=== PATIENT | male | born 1950 | race Hispanic/Latino ===

== ENCOUNTER 2016-12-15 14:49 | Inpatient (IN) | payer MEDICARE ==
[2016-12-15 14:49] VITALS: BMI 25.0
[2016-12-15 16:57] LABS: BASO # 0.1 K/uL (0.0-0.2); BASO % 1.4 % (0.0-2.0); EOS # 0.1 K/uL (0.0-0.7); EOS % 1.8 % (0.0-4.0); HEMOGLOBIN 14.9 g/dL (12.0-18.0); LYMPH # 2.3 K/uL (1.0-4.3); LYMPH % 36.7 % (20.0-40.0); MEAN CELL VOLUME 94.3 fL (80.0-94.0); MEAN CORPUSCULAR HEMOGLOBIN 31.5 pg (27.0-31.0); MEAN CORPUSCULAR HGB CONC 33.4 g/dL (33.0-37.0); MEAN PLATELET VOLUME 7.7 fL (7.2-11.7); MONO # 0.3 K/uL (0.0-0.8); MONO % 5.4 % (0.0-10.0); NEUT # 3.5 K/uL (1.8-7.0); NEUT % 54.7 % (50.0-75.0); NRBC % 0.1 % (0.0-2.0); RBC 4.72 Mil/uL (4.40-5.90); RED CELL DISTRIBUTION WIDTH 15.6 % (11.5-14.5); URINE BILIRUBIN NEGATIVE (NEGATIVE); URINE BLOOD NEGATIVE (NEGATIVE); URINE CLARITY Clear (Clear); URINE COLOR Yellow (YELLOW); URINE GLUCOSE (UA) NORMAL (Normal); URINE LEUKOCYTE ESTERASE NEG Leu/uL (Negative); URINE NITRATE NEGATIVE (NEGATIVE); URINE PROTEIN NEGATIVE (NEGATIVE); WHITE BLOOD COUNT 6.4 K/uL (4.8-10.8)
[2016-12-15 17:02] LABS: ALBUMIN 4.1 g/dL (3.5-5.0)
[2016-12-15 17:05] LABS: ALB/GLOB RATIO 1.4 (1.0-2.1); ALT/SGPT 34 U/L (21-72); AST/SGOT 34 U/L (17-59); BARBITURATES, UR NEGATIVE (NEGATIVE); BLOOD UREA NITROGEN 7 mg/dL (9-20); GFR AFRICAN-AMERICAN > 60; GFR NON-AFRICAN AMERICAN > 60
[2016-12-15 17:06] LABS: BENZODIAZEPINES, UR NEGATIVE (NEGATIVE); CALCIUM 9.1 mg/dl (8.6-10.4)
[2016-12-15 17:11] LABS: OPIATES, UR NEGATIVE (NEGATIVE)
[2016-12-15 17:55] LABS: PHENCYCLIDINE, UR NEGATIVE (NEGATIVE)
--- NOTE | 2016-12-15 19:36 | C.PDOC ---
History Of Present Illness 66 y/o male presents to the ED for evaluation of depression- requesting psychiatric eval/admission. Patient also admits to daily alcohol intake for the last 3 weeks. He denies specific suicidal ideation/plan at this time. Time Seen by Provider: 12/15/16 16:16 Chief Complaint (Nursing): Psychiatric Evaluation History Per: Patient History/Exam Limitations: no limitations Onset/Duration Of Symptoms: Other (approx 3 weeks ) Current Symptoms Are (Timing): Still Present Suicide/Self Injury Attempted (Context): None Modifying Factor(s): Alcohol Associated Symptoms: Depression. denies: Suicidal Thoughts, Suicidal Plan Additional History Per: Patient Past Medical History Reviewed: Historical Data, Nursing Documentation, Vital Signs Vital Signs: Last Vital Signs Temp 97.8 F 12/19/16 09:50 Pulse 100 H 12/19/16 09:50 Resp 18 12/19/16 09:50 BP 105/77 12/19/16 09:50 Pulse Ox 97 12/19/16 09:50 - Medical History PMH: Anxiety, Bronchitis, COPD, Depression, Emphysema, HTN Surgical History: Tonsillectomy - [facility] Procedures ALCOHOL DETOXIFICATION (08/29/12) CLOSURE SKIN & SUBCUTANEOUS NEC (08/29/12) DETOXIFICATION SERVICES FOR SUBSTANCE ABUSE TREATMENT (11/25/15) GROUP PSYCHOTHERAPY (11/25/15) INJECT/INFUSE NEC (10/05/12) Family History: States: No Known Family Hx - Social History Hx Tobacco Use: No Hx Alcohol Use: Yes Hx Substance Use: No - Immunization History Hx Tetanus Toxoid Vaccination: No Hx Influenza Vaccination: No Review Of Systems Except As Marked, All Systems Reviewed And Found Negative. Constitutional: Negative for: Fever, Chills Cardiovascular: Negative for: Chest Pain, Palpitations Respiratory: Negative for: Cough, Shortness of Breath Gastrointestinal: Negative for: Nausea, Vomiting, Abdominal Pain Psych: Positive for: Depression, Other (+daily alcohol intake x 3 weeks). Negative for: Suicidal ideation Physical Exam - Physical Exam Appears: Well, Non-toxic, No Acute Distress Skin: Normal Color, Warm, Dry Head: Normacephalic Eye(s): bilateral: Normal Inspection Oral Mucosa: Moist Cardiovascular: Rhythm Regular Respiratory: Normal Breath Sounds, No Rales, No Rhonchi, No Wheezing Gastrointestinal/Abdominal: Normal Exam, Bowel Sounds, Soft, No Tenderness Extremity: Normal ROM Neurological/Psych: Oriented x3 Gait: Steady ED Course And Treatment - Laboratory Results Result Diagrams: 12/15/16 16:51 12/15/16 16:51 O2 Sat by Pulse Oximetry: 99 (on RA) Pulse Ox Interpretation: Normal Progress Note: Blood work, UA, UDS ordered and reviewed. Patient medically cleared at 1820. Pending psychiatric evaluation. 8:20pm- Patient accepted for detox admission by Dr. Glover. Disposition - Disposition Disposition: HOSPITALIZED Disposition Time: 20:26 Condition: STABLE - Clinical Impression Clinical Impression: Alcohol dependence, Depressed - Scribe Statement The provider has reviewed the documentation as recorded by the Scribe (Rosibel Hurd) Provider Attestation: All medical record entries made by the Scribe were at my direction and personally dictated by me. I have reviewed the chart and agree that the record accurately reflects my personal performance of the history, physical exam, medical decision making, and the department course for this patient. I have also personally directed, reviewed, and agree with the discharge instructions and disposition. Decision To Admit - Pt Status Changed To: Hospital Disposition Of: Inpatient - Admit Certification Admit to Inpatient:: After my assessment, the patient will require hospitalization for at least two midnights. This is because of the severity of symptoms shown, intensity of services needed, and/or the medical risk in this patient being treated as an outpatient. - InPatient: Physician Admission Certification: I certify that this patient requires 2 or more midnights of care for the following reason:: see notes - . Bed Request Type: Detox Admitting Physician: Sivan Glover Patient Diagnosis: Alcohol dependence, Depressed
[2016-12-15] MEDS ORDERED: Albuterol HFA 90 mcg/actuation (8 g) INH PRN (21:00)
[2016-12-15] MEDS ORDERED: Bacitracin Ointment 30 GM TUBE TOP ONE (22:20)
[2016-12-16] MEDS: Multiple Vitamins Tab PO SCH (10:00)
[2016-12-16] MEDS: Bacitracin Ointment 30 GM TUBE TOP SCH ×2 (10:02→18:26)
[2016-12-16] MEDS ORDERED: Albuterol HFA 90 mcg/actuation (8 g) INH PRN (11:08)
--- NOTE | 2016-12-16 11:15 | PCM.PSYCH ---
Initial Psychiatric Evaluation - Initial Psychiatric Evaluation Type of Admission: Voluntary Legal Status: Capacity Chief Complaint (in patient's own words): I came in to get help in detox.' History of Present Illness and Precipitating Events: This is a 66 years old CM with a history of alcohol dependence, benzo dependence and major depressive disorder came to the ED to get help in Alcohol and benzo detox. Patient reports that he was clean for 4 years, but 6 months ago he had a break up with his GF so he relapsed on Alcohol and Xanax. Pt states of consuming 2-3 pints of vodka along with 6-8 mg of Xanax on a daily basis. As per the patient yesterday he consumed 2 pints along with 8 mg of Xanax started having withdrawal symptoms and so came to the hospital to get help. Patient reports of irritable mood, and reports withdrawal symptoms including sweating, headaches, anxiety, nausea, and shakes. Patient reports depressed mood and reports feelings of hopelessness and helplessness. Pt reports that yesterday he was drunk and he became increasingly depressed and started cutting his both arms and belly. Multiple superficial cut [place] were seen on both arms and abdomen. However patient any suicidal ideation or homicidal ideation. Patient denies any auditory or visual hallucinations or any psychotic symptoms. Denies any manic symptoms. Denies any other substance abuse. Past medical history HTN Past psychiatric history Patient denies any past history of inpatient psychiatric hospitalizations but reports history of follow-up with a psychiatrist in the past. Patient admits history of suicidal ideation with superficial cuts in the past, but denies any serious attempt. Patient denies any history of auditory or visual hallucinations or any psychotic symptoms in the past Patient reports history of multiple detoxes in the past. Long history of sobriety for almost 4 years, [id number]. Current Medications: Active Medications Generic Name Dose Route Start Last Admin Trade Name Freq PRN Reason Stop Dose Admin Albuterol 1 puff 12/15/16 21:00 Ventolin Hfa 90 Mcg/Actuation (8 G) INH RQ4 PRN Shortness of Breath Bacitracin 1 gm 12/16/16 10:00 12/16/16 10:02 Bacitracin TOP 1 applic BID YANELIS Administration Chlordiazepoxide 25 mg 12/16/16 00:00 12/16/16 06:13 Librium PO 12/19/16 23:59 25 mg Q6 YANELIS Administration Taper Chlordiazepoxide 25 mg 12/15/16 20:54 12/16/16 10:05 Librium PO 25 mg Q4H PRN Administration Alcohol Withdrawal Folic Acid 1 mg 12/16/16 10:00 12/16/16 09:59 Folic Acid PO 1 mg DAILY YANELIS Administration Gabapentin 300 mg 12/16/16 10:00 12/16/16 10:00 Neurontin PO 300 mg TID YANELIS Administration Multivitamins 1 tab 12/16/16 10:00 12/16/16 10:00 Hexavitamin PO 1 tab DAILY YANELIS Administration Thiamine HCl 100 mg 12/16/16 10:00 12/16/16 10:00 Vitamin B1 Tab PO 100 mg DAILY YANELIS Administration Trazodone HCl 100 mg 12/15/16 20:55 12/15/16 22:18 Desyrel PO 100 mg HS PRN Administration insomnia Venlafaxine HCl 75 mg 12/16/16 11:15 Effexor Xr PO DAILY YANELIS Past Psychiatric History - Past Psychiatric History Previous Treatment History: Inpatient Pertinent Medical Hx (Current Medical&Sleep Prob, Allergies): Allergies Allergy/AdvReac Type Severity Reaction Status Date / Time No Known Allergies Allergy Verified 11/25/15 14:34 Albuterol 0.5% [Albuterol Sulfate 20 Ml] 0 IH 08/29/12 Clonazepam [Klonopin] 2 mg PO 08/29/12 Antihypertensive 11/25/15 Effexor 11/25/15 Albuterol HFA [Ventolin HFA 90 mcg/actuation (8 g)] 1 puff INH RQ4 PRN #0 inhaler 11/28/15 Gabapentin [Neurontin] 300 mg PO TID #90 cap 11/28/15 Naltrexone [Revia] 50 mg PO DAILY #30 tab 11/28/15 Venlafaxine [Effexor XR] 75 mg PO DAILY #30 cer 11/28/15 chlordiazePOXIDE [Librium] 25 mg PO Q4H PRN #1 cap 11/28/15 traZODone [Desyrel] 100 mg PO HS PRN #100 tab 11/28/15 Review of Systems - Review of Systems All systems: reviewed and no additional remarkable complaints except - Psychiatric Psychiatric: Anxiety, Depression, Irritability Mental Status Examination - Personal Presentation Personal Presentation: Looks stated age - Affect Affect: Constricted, Depressed - Motor Activity Motor Activity: Calm - Reliability in Providing Information Reliability in Providing Information: Good - Speech Speech: Organized - Mood Mood: Depressed, Anxious - Formal Thought Process Formal Thought Process: No Impairment - Obsessions/Compulsions Obsessions: No Compulsions: No - Cognitive Functions Orientation: Person, Place, Situation, Time Sensorium: Alert Attention/Concentration: Attentive Abstract Thinking: [place] Estimate of Intelligence: Below average Judgement: Imparied, as evidence by: Poor judgement, Intact, as evidence by: Insight regarding need for hospitalization - Risk Risk: Withdrawal, Diminished functioning - Strength & Assets Inventory Strength & Assets Inventory: Cooperative - Limitations Limitations: Living alone DSM 5 DX - DSM 5 DSM 5 Diagnosis: Alcohol use disorder severe Alcohol withdrawal Sedative/hypnotic use disorder severe Sedative/use withdrawal Major depressive disorder recurrent severe without psychotic features - Recommended/Plan of Treatment Treatment Recommendations and Plan of Treatment: Alcohol use disorder severe CBT Psychoeducation Supportive therapy, individual therapy Use [place] for abstinence Alcohol withdrawal uncomplicated CBT Psychoeducation Supportive therapy, individual therapy Librium when necessary Start Librium taper Start folic acid/thiamine/multivitamin Sedative/hypnotic use disorder severe CBT Psychoeducation Use [place] for abstinence Sedative/use withdrawal CBT Psychoeducation Supportive therapy, individual therapy Librium when necessary Major depressive disorder recurrent severe without psychotic features CBT Psychoeducation Supportive therapy, individual therapy Gabapentin 300 mg pO TID Venlafaxine 75 g po Q Daily Trazodone 100 mg PO Q HS HTN Continue prescribed medications - Smoking Cessation Smoking Cessation Initiated: No
[2016-12-16] MEDS: Venlafaxine 75 mg ER Cap PO SCH (12:33)
[2016-12-17] MEDS ORDERED: Venlafaxine 150 mg ER Cap PO SCH (10:19)
[2016-12-17] MEDS: Bacitracin Ointment 30 GM TUBE TOP SCH ×2 (10:37→17:35)
[2016-12-17] MEDS: Multiple Vitamins Tab PO SCH (10:40)
[2016-12-17] MEDS: Venlafaxine 150 mg ER Cap PO SCH (10:50)
--- NOTE | 2016-12-17 13:03 | PCM.PYCHPN ---
Psychiatric Progress Note - Psychiatric Progress Note Patient seen today, length of contact: 17 min Patient Chief Complaint: "I am a little better" Problems Identified/Issues Discussed: The pt is seen, chart reviewed, case discussed with staff. The pt is compliant with medications and reports no side-effects. Symptoms are improving but needs more time to stabilize. After care discussed, support and psychoeducation given. His wounds discussed Effexor dose adjusted Medication Change: Yes (add naltrexone and increase effexor) Medical Record Reviewed: Yes Mental Status Examination - Cognitive Function Orientation: Person, Place, Situation, Time Memory: Intact Attention: WNL Concentration: Poor Association: WNL Fund of Knowledge: WNL - Mood Mood: Depressed, Anxious - Affect Affect: Constricted, Depressed - Speech Speech: Appropriate - Formal Thought Process Formal Thought Process: No Impairment - Suicidal Ideation Suicidal Ideation: No - Homicidal Ideation Homicidal Ideation: No Goal/Treatment Plan - Goal/Treatment Plan Need for Continued Stay: Discharge may exacerbated symptoms, Severe functional impairment Progress Toward Problem(s) and Goals/Treatment Plan: Librium detox Gabapentin for augmentation As needed meds and vitamins Attend groups and activities [place] for abstinence and CBT for relapse prevention Support and psychoeducation Consider and encourage MAT (Vivitrol)Start Naltrexone pills now Refer to after care in [facility] for depression and anxiety Estimated Date of D/C: 12/20/16 - Smoking Cessation Smoking Cessation Initiated: Yes
[2016-12-17] MEDS: Venlafaxine 75 mg ER Cap PO SCH (13:48)
[2016-12-18] MEDS ORDERED: Venlafaxine 37.5 mg ER Cap PO SCH (10:00)
[2016-12-18] MEDS: Multiple Vitamins Tab PO SCH (10:21)
[2016-12-18] MEDS: Bacitracin Ointment 30 GM TUBE TOP SCH ×2 (10:22→17:26)
[2016-12-18] MEDS: Venlafaxine 150 mg ER Cap PO SCH (11:22)
--- NOTE | 2016-12-18 12:55 | PCM.PYCHPN ---
Psychiatric Progress Note - Psychiatric Progress Note Patient seen today, length of contact: 16 min Patient Chief Complaint: "I am anxious" Problems Identified/Issues Discussed: The pt is seen, chart reviewed, case discussed with staff. The pt is compliant with medications and reports no side-effects. Has some insomnia Symptoms are improving but needs more time to stabilize. After care discussed, support and psychoeducation given. More optimistic His wounds discussed Effexor dose adjusted again: 225 mg tomorrow Inderal is to be given prn anxiety as he wants benzos instead. Medication Change: Yes (increase effexor) Medical Record Reviewed: Yes Mental Status Examination - Cognitive Function Orientation: Person, Place, Situation, Time Memory: Intact Attention: WNL Concentration: Poor Association: WNL Fund of Knowledge: WNL - Mood Mood: Depressed, Anxious - Affect Affect: Constricted, Depressed - Speech Speech: Appropriate - Formal Thought Process Formal Thought Process: No Impairment - Suicidal Ideation Suicidal Ideation: No - Homicidal Ideation Homicidal Ideation: No Goal/Treatment Plan - Goal/Treatment Plan Need for Continued Stay: Discharge may exacerbated symptoms, Severe functional impairment Progress Toward Problem(s) and Goals/Treatment Plan: Librium detox Gabapentin for augmentation As needed meds and vitamins Attend groups and activities [place] for abstinence and CBT for relapse prevention Support and psychoeducation Consider and encourage MAT (Vivitrol)Start Naltrexone pills now Refer to after care in [place] Effexor for depression and anxiety Estimated Date of D/C: 12/20/16
[2016-12-18 15:39] VITALS: RESP 18
[2016-12-19 09:51] VITALS: BP 105/77; PULSE 100; TEMP 97.8
[2016-12-19] MEDS ORDERED: Venlafaxine 75 mg ER Cap PO SCH (10:00)
--- NOTE | 2016-12-19 10:02 | PCM.PYCHDC ---
Mental Status Examination - Mental Status Examination Orientation: Person, Place, Situation, Time Memory: Intact Mood: Neutral Affect: Broad Speech: Appropriate Attention: WNL Concentration: WNL Association: WNL Fund of Knowledge: WNL Formal Thought Process: No Impairment Suicidal Ideation: No Current Homicidal Ideation?: No Discharge Summary - Discharge Note Reason for Hospitalization: Alcohol and benzo detox, depression/anxiety. Consultations:: List each consultation separately and include: 1. Reason for request. 2. Findings. 3. Follow-up Summary of Hospital Course include:: 1. Description of specific treatment plan utilized for patients during their course of treatmen. 2. Summarize the time- course for resolution of acute symptoms and/or regressed behaviors. 3. Describe issues identified and worked on during hospitalization. 4. Describe medication utilized. 5. Describe medical problems identified and treated. 6. Reassessment of suicide risk Summary of Hospital Course: The pt was admitted and started on treatment with psychotherapy, support, psychoeducation and medications. AL and CBT used. The pt attended groups and activities, as well as milieu therapy. All the risks and benefits of medications are discussed and the patient understood and agreed. He asked for benzos after d/c "in case I have those severe panic attacks" but understood the risks and psychoed given on how to cope with them. The pt improved with the treatments provided. No self-injurious bhv observed. After care discussed with the patient. He went to [facility] to get tx for both psych and KENNY issues - Final Diagnosis (DSM 5) Condition upon Discharge: STABLE DSM 5: Depression Alcohol abuse disorder Anxiety Disposition: HOME/ ROUTINE Follow-up Treatment Plan: Continue below medications after discharge. Follow after care plan as discussed: [facility] Use relapse prevention skills Return to ER or call 911 if suicidal, homicidal or symptoms relapse. Stay away from stress, alcohol and drugs. See primary doctor once a year. Prescriptions/Medication Reconciliation: Albuterol HFA [Ventolin HFA 90 mcg/actuation (8 g)] 1 puff INH RQ4 PRN #1 inhaler PRN Reason: Shortness Of Breath Bacitracin Ointment [Bacitracin] 1 gm TOP BID #1 Gabapentin [Neurontin] 400 mg PO TID #90 cap Multivitamins [Hexavitamin] 1 tab PO DAILY #30 tab Naltrexone [Revia] 50 mg PO DAILY #30 tab Propranolol [Inderal] 10 mg PO Q8H PRN #90 tab PRN Reason: Anxiety QUEtiapine [Seroquel] 100 mg PO HS #30 tab traZODone [Desyrel] 100 mg PO HS PRN #30 tab PRN Reason: insomnia Venlafaxine [Effexor XR] 150 mg PO DAILY #30 cer Venlafaxine [Effexor XR] 75 mg PO DAILY #30 cer - Smoking Cessation Smoking Cessation Medication prescribed: No - Antipsychotic Medications Pt discharged on 2 or more routine antipsychotic medications: No
[2016-12-19] MEDS: Multiple Vitamins Tab PO SCH (10:50)
[2016-12-19] MEDS: Bacitracin Ointment 30 GM TUBE TOP SCH (10:53)
[2016-12-21 10:26] VITALS: O2SAT 99
== END 2016-12-19 11:30 | disposition home or self-care (01) | DRG 895 ==
LOC: C.ER 14:49 → C.7D 20:26
PROVIDERS: ADMIT Psychiatry & Neurology Psychiatry; ATTEND Psychiatry & Neurology Psychiatry
PROC: HZ2ZZZZ Detoxification Services for Substance Abuse Treatment (ICD-10-PCS; principal; 2016-12-15)
PROC: HZ52ZZZ Individual Psychotherapy for Substance Abuse Treatment, Cognitive-Behavioral (ICD-10-PCS; 2016-12-15)
PROC: HZ59ZZZ Individual Psychotherapy for Substance Abuse Treatment, Supportive (ICD-10-PCS; 2016-12-15)
PROC: HZ56ZZZ Individual Psychotherapy for Substance Abuse Treatment, Psychoeducation (ICD-10-PCS; 2016-12-15)
DX: F10.230 Alcohol dependence with withdrawal, uncomplicated (principal); F33.2 Major depressive disorder, recurrent severe without psychotic features; F41.9 Anxiety disorder, unspecified; F13.230 Sedative, hypnotic or anxiolytic dependence with withdrawal, uncomplicated; J43.9 Emphysema, unspecified; I10 Essential (primary) hypertension; Y90.7 Blood alcohol level of 200-239 mg/100 ml; S30.92XA Unspecified superficial injury of abdominal wall, initial encounter; S40.922A Unspecified superficial injury of left upper arm, initial encounter; S40.921A Unspecified superficial injury of right upper arm, initial encounter; Y28.9XXA Contact with unspecified sharp object, undetermined intent, initial encounter